=== PATIENT | male | born 1945 | race Caucasian/White ===

== ENCOUNTER 2017-10-21 08:40 | Day surgery (SDC) | payer OTHER, MEDICARE ==
[2017-10-21] MEDS ORDERED: NS 500 ML IV ONE (08:42)
[2017-10-21] MEDS ORDERED: MIDAZOLAM 2 MG/2 ML VIAL IVP ONE (08:42)
[2017-10-21] MEDS ORDERED: fentaNYL 100 MCG/2 ML INJ IVP ONE (08:42)
[2017-10-21] MEDS ORDERED: BENZOCAINE UNIT DOSE SPRAY HURRICAINE MM ONE (08:42)
[2017-10-21] MEDS ORDERED: ATROPINE SULFATE 1 MG/10 ML SYR ONE (09:19)
--- NOTE | 2017-10-21 09:25 | PDHPUP ---
History & Physical Update H&P update statement: This history and physical update is based on an assessment of the patient which was completed after admission or registration (within 24 hours), but prior to the surgery/procedure. H&P update: H&P reviewed & patient examined, no change in patient's condition since H&P completed (Reviewed Dr. Ross's note dated 10/11/2017)
--- NOTE | 2017-10-21 09:29 | PDANEPAE ---
ANE History of Present Illness PAF for MABEL ANE Past Medical History - Cardiovascular History Hx Hypertension: Yes Hx Arrhythmias: Yes Hx Chest Pain: No Hx Coronary Artery / Peripheral Vascular Disease: Yes Hx CHF / Valvular Disease: No Hx Palpitations: No Cardiovascular History Comment: Atrial Fibrillation - Pulmonary History Hx COPD: No Hx Asthma/Reactive Airway Disease: No Hx Recent Upper Respiratory Infection: No Hx Oxygen in Use at Home: Yes Hx Sleep Apnea: No Pulmonary History Comment: 2l O2 per nasal cannula - Neurologic History Hx Cerebrovascular Accident: No Hx Seizures: No Hx Dementia: No - Endocrine History Hx Diabetes: No Obesity: yes - Renal History Hx Renal Disorders: Yes Renal History Comment: Right Kidney Stone - Liver History Hx Hepatic Disorders: Yes Hepatic History Comment: Lesion on Liver - Neurological & Psychiatric Hx Hx Neurological and Psychiatric Disorders: No - Cancer History Hx Cancer: Yes Cancer History Comment: Malignant Melanoma - Congenital Disorder History Hx Congenital Disorders: No - GI History Hx Gastrointestinal Disorders: No - Other Health History Other Health History: Bruise easily, slight glaucoma, - Chronic Pain History Chronic Pain: No (Occasional Kidney stone pain and Arthritic pain) - Surgical History Prior Surgeries: Left shoulder repair x 3, Stent placements x 2, Stomach resection, Left neck resection with lymp nodes resection with large melanoma removed from nose. ANE Review of Systems Review of Systems: - Exercise capacity Exercise capacity: <4 METS ANE Patient History - Allergies Allergies/Adverse Reactions: gluten Allergy (Verified 09/08/12 16:06) - Home Medications Home medications: home medication list seen and reviewed Home Medications: Ascorbic Acid [Vitamin C 500 mg (OTC)] 1,000 mg PO DAILY 04/23/12 [Last Taken 08:00] Aspirin [Aspirin 325 mg (OTC)] 325 mg PO DAILY 04/23/12 [Last Taken 05/13/12] Atorvastatin Calcium [Lipitor 40 mg (RX)] 40 mg PO DAILY@18 04/23/12 [Last Taken 05/18/12 22:00] Calcium Carbonate [Calcicarb] 650 mg PO BID 04/23/12 [Last Taken 05/18/12 08:00] Cholecalciferol Vit D3 [Vitamin D3 40318 units (OTC)] 50,000 unit PO Q7D [Last Taken 05/18/12 08:00] Metoprolol Succinate Xr [Toprol Xl 50 mg (RX)] 50 mg PO DAILY 04/23/12 [Last Taken 05/20/12 08:00] NIFEdipine ER [Adalat CC 30 mg (RX)] 30 mg PO DAILY 04/23/12 [Last Taken 22:00] Niacin [Niacin 500 mg (OTC)] 500 mg PO BID 04/23/12 [Last Taken 05/18/12 20:00] [place]-3 Fatty Acids [Fish Oil 1000 mg (OTC)] 2,000 mg PO DAILY@18 04/23/12 [ Last Taken 05/13/12] Selenium [Selenium 200mcg (OTC)] 100 mcg PO DAILY 04/23/12 [Last Taken 05/18/12 08:00] Ubidecarenone [Coenzyme Q10] 200 mg PO DAILY 04/23/12 [Last Taken 05/18/12 08:00 ] Valsartan [Diovan 160MG (RX)] 160 mg PO BID 04/23/12 [Last Taken 05/19/12 08:00] Chromium Picolinate [Chromium Picolinate (OTC)] 200 mcg PO DAILY 05/16/12 [Last Taken 05/18/12 08:00] Completed By Pst Rn 05/16/12 [Last Taken Unknown] Folic Acid 0.8 mg PO DAILY 05/16/12 [Last Taken Unknown] Pyridoxine HCl (Vitamin B6) [Vitamin B-6] 50 mg PO DAILY 05/16/12 [Last Taken 08:00] Pharmacist Completed 05/19/12 05/19/12 [Last Taken 05/19/12] Warfarin Sodium 01/18/14 [Last Taken Unknown] - Smoking Hx Smoking Status: Former smoker - Family Anes Hx Family Hx Anesthesia Complications: unknow ANE Labs/Vital Signs - Vital Signs Height: 173 cm Weight: 107 kg ANE Physical Exam - Airway Neck exam: FROM Mallampati Score: Class 2 Mouth exam: normal dental/mouth exam - Pulmonary Pulmonary: no respiratory distress - Cardiovascular Cardiovascular: regular rate and rhythym - ASA Status ASA Status: III ANE Anesthesia Plan Anesthesia Plan: GA with mask
[2017-10-21] MEDS ORDERED: PROPOFOL 200 MG/20 ML VIAL ONE (09:30)
--- NOTE | 2017-10-21 10:15 | POSTANESTH ---
Post Anesthetic Evaluation Cardiovascular Status: Normal, Stable Respiratory Status: Normal, Stable Level of Consciousness/Mental Status: Can Participate in Eval, Mildly Sleepy, Arousable Pain Control: Adequate, Prn Tx Ordered Nausea/Vomiting Control: Adequate, Prn Tx Ordered Complications Possibly Related to Anesthesia: None Noted
--- NOTE | 2017-10-21 15:27 | ECHO ---
[email or web address] [address] [address] Main: [phone] Fax: Transesophageal Echocardiography Name: ALEXANDRIA WREN MR#: [id number] Study Date: 10/21/2017 Study Time: 09:34 AM Date of : 1945 Age: 71 year(s) Height: ( ) Weight: ( ) BSA: Gender: Male Examination: MABEL Indication: Pre Watchman Image Quality: Adequate Contrast: Requested by: Irasema Thao Heart Rate: Rhythm: BP: / Procedure Staff Mathematical Scientist: Adilia Loyd RDCS Reading Physician: Irasema Thao MD Requesting Provider: Pato Ross MABEL Exam Details Patient Consent: Risks, alternatives of procedure explained to patient, informed consent obtained. Conclusions: Normal size left ventricle. Normal global systolic LV function. The ejection fraction is visually estimated to be 60 %. No regional wall motion abnormality. Normal size right ventricle. Normal RV function. The pre watchman measurement for the FERMÍN at 0 degrees was 1.9 cm by 2.87 cm. The measurement at 45 degrees was 1.25 cm by 1.96 cm. The measurement at 90 degrees was .9 cm by 1.9 cm. The measurement 135 degrees was 1.1 cm by 1.95 cm. The left atrial appendage is multilobular. Good color flow doppler in the left atrial appendage. Normal PW-Doppler flow pattern. No thrombus in left appendage. There appears to be turbulent venous flow seen in right atrium. Negative bubble study. Mild mitral valve regurgitation is present. The aortic valve is tri-leaflet. Trivial aortic valve regurgitation. No aortic valve stenosis is present. Alexandria Wren Has an elevated CHADS2 Vasc score of 3 and is a poor candidate for long-term anticoagulation therapy due to frequent episodes of hematuria. He will be referred for a Watchman evaluation in the [facility] structural [facility]. Measurements: Patient: ALEXANDRIA WREN Study Date: 10/21/2017 Page 1 of 2 09:34 AM Chambers Valvular Assessment AV/MV Valvular Assessment TV/PV Normal Normal Normal Name Value Range Name Value Range Name Value Range Visual EF: 60 % Additional Measurements: Findings: Left Ventricle: Normal size left ventricle. No LV hypertrophy. Normal global systolic LV function. The ejection fraction is visually estimated to be 60 %. No regional wall motion abnormality. Unable to assess diastolic dysfunction. Right Ventricle: Normal size right ventricle. Normal RV function. Left Atrium: The left atrium is normal in size. The pre watchman measurement for the FERMÍN at 0 degrees was 1.9 cm by 2.87 cm. The measurement at 45 degrees was 1.25 cm by 1.96 cm. The measurement at 90 degrees was .9 cm by 1.9 cm. The measurement 135 degrees was 1.1 cm by 1.95 cm. Left Atrial Appendage: The left atrial appendage is multilobular. Good color flow doppler in the left atrial appendage. Normal PW-Doppler flow pattern. No thrombus in left appendage. Right Atrium: The right atrium is normal in size. There appears to be turbulent venous flow seen in right atrium. Negative bubble study. Mitral Valve: The mitral valve is normal in appearance and function. Mild mitral valve regurgitation is present. No mitral stenosis is present. Aortic Valve: The aortic valve is tri-leaflet. Trivial aortic valve regurgitation. No aortic valve stenosis is present. Tricuspid Valve: The tricuspid valve is normal in appearance and function. Trivial tricuspid valve regurgitation. Pulmonic Valve: The pulmonic valve is normal in appearance and function. There is no pulmonic regurgitation seen. Aorta: The aorta is normal. Pericardium: No pericardial effusion. No pleural effusion. Exam Comments: l1n (No Signature Object) Patient: ALEXANDRIA WREN Study Date: 10/21/2017 Page 2 of 2 09:34 AM [id number]
== END 2017-10-21 11:30 | disposition home or self-care (01) ==
LOC: FCATH 08:40
PROVIDERS: ATTEND Internal Medicine Cardiovascular Disease
PROC: B246ZZ4 Ultrasonography of Right and Left Heart, Transesophageal (ICD-10-PCS; principal; 2017-10-21)
DX: I48.0 Paroxysmal atrial fibrillation (principal); I25.10 Atherosclerotic heart disease of native coronary artery without angina pectoris; I10 Essential (primary) hypertension; N20.0 Calculus of kidney; Z79.01 Long term (current) use of anticoagulants
CPT/HCPCS: J0461; J2704

== ENCOUNTER 2017-12-04 08:28 | Day surgery (SDC) | payer OTHER, MEDICARE ==
[2017-12-04] MEDS ORDERED: diphenhydrAMINE 25 MG CAP PO ONE ×2 (08:29→08:43)
[2017-12-04] MEDS ORDERED: NS 1,000 ML IV ONE (08:29)
[2017-12-04] MEDS ORDERED: DIAZEPAM 5 MG TAB PO ONE (08:29)
[2017-12-04] MEDS ORDERED: ASPIRIN EC 325 MG TAB PO ONE ×2 (08:29→08:43)
[2017-12-04] MEDS ORDERED: FAMOTIDINE 20 MG TAB PO ONE (08:29)
[2017-12-04] MEDS ORDERED: DIAZEPAM 5 MG TAB ONE (08:43)
[2017-12-04] MEDS ORDERED: FAMOTIDINE 20 MG TAB ONE (08:43)
--- NOTE | 2017-12-04 08:47 | CPEKG ---
Heart Rate: 59 RR Interval: 1017 P-R Interval: 180 QRSD Interval: 98 QT Interval: 444 QTC Interval: 440 P [place]: 68 QRS [place]: 4 T Wave [place]: 230 EKG Severity - ABNORMAL ECG - EKG Impression: SINUS RHYTHM EKG Impression: ATRIAL PREMATURE COMPLEX EKG Impression: CONSIDER ANTEROSEPTAL INFARCT EKG Impression: REPOL ABNRM SUGGESTS ISCHEMIA, DIFFUSE LEADS Electronically Signed By: Zhou Sr 04-Dec-2017 09:41:56
[2017-12-04 09:04] LABS: PLATELET COUNT 277 10^3/uL (150-400)
[2017-12-04 09:13] LABS: INR 1.05 (0.83-1.16); PROTIME(PATIENT) 13.9 SEC (12.0-15.0)
[2017-12-04] MEDS ORDERED: MIDAZOLAM 2 MG/2 ML VIAL ONE (09:43)
[2017-12-04] MEDS ORDERED: LIDOCAINE 1% 300 MG/30 ML SDV ONE (09:43)
[2017-12-04] MEDS ORDERED: IOPAMIDOL (ISOVUE-370) 150 ML BTL IV ONE (09:43)
[2017-12-04] MEDS ORDERED: fentaNYL 100 MCG/2 ML INJ ONE (09:43)
--- NOTE | 2017-12-04 10:53 | PDHPUP ---
History & Physical Update H&P update statement: This history and physical update is based on an assessment of the patient which was completed after admission or registration (within 24 hours), but prior to the surgery/procedure. H&P update: H&P reviewed & patient examined, no change in patient's condition since H&P completed
--- NOTE | 2017-12-04 10:53 | PDPROPOC ---
Sedation Plan of Care ASA Classification: ASA 1 Planned drugs: fentanyl, midazolam Mallampati Score: Class 1 Mallampati Reference Image: Patient passed 3-3-2 rule?: Yes
[2017-12-04] MEDS ORDERED: OXYCODONE/APAP 5/325 TAB PO PRN (11:30)
[2017-12-04] MEDS ORDERED: ATROPINE SULFATE 1 MG/10 ML SYR IVP PRN (11:30)
[2017-12-04] MEDS ORDERED: ONDANSETRON 4 MG/2 ML VIAL IVP PRN (11:30)
[2017-12-04] MEDS ORDERED: NITROGLYCERIN 0.4 MG BTL SL PRN (11:30)
[2017-12-04] MEDS ORDERED: HYDROCODONE/APAP 5/325 TAB PO PRN (11:30)
--- NOTE | 2017-12-04 12:30 | CPIP ---
[f rep st] INVASIVE CARDIAC PROCEDURE PROCEDURE: Coronary angiogram, left heart catheterization. INDICATION: The patient is getting ready to undergo a cardiovascular surgical procedure for his atri al fibrillation. The information was needed to see if the patient needed coronary bypass grafting at the time of the other procedure. He has not been having chest pain. He is exercising on a regular basis. He is known to have coronar y artery disease and has twice received 2 stents, once in 2004 and the next time approximately 2006. FINDINGS: The left main coronary artery has mild narrowing at the ostium. There was no dampening, a nd there is no high-grade obstruction present. The left anterior descending artery is heavily stented at the end of the proximal and in the mid sect ion, and there is 30% stenosis within the stent. The patient has intimal disease in the distal LAD and in the diagonal system. The circumflex coronar y artery has no high-grade disease present. It gives a very large 1st obtuse marginal branch with in timal disease present and no high-grade stenosis. That vessel was also stented. The right coronary artery is dominant and has excellent flow. There is intimal disease throughout. There is 20% to 30% disease in the proximal mid and distal segment, maybe 35% to 40% disease. It bif urcates after that with ostial disease in both major branches of which is not consistent with high-gr khai stenosis. Multiple views were taken of the bifurcation, and no high-grade stenosis was present. Left heart catheterization was done. Left ventricular end-diastolic pressure 10 mmHg. There was no aortic stenosis. Left ventriculogram was not necessary. COMPLICATIONS: None. CONDITION AT THE END OF THE STUDY: Excellent. I reviewed the films with the interventional service, and it was felt that there is nothing that cb ants further evaluation for possible bypass surgery, such as FFR study to see if there is a significa nt stenosis present. Our recommendation is to proceed with the procedure without bypass surgery at this time. /[id number]/MODL
== END 2017-12-04 11:00 | disposition home or self-care (01) ==
LOC: FCATH 08:28
PROVIDERS: ATTEND Internal Medicine
PROC: 4A023N7 Measurement of Cardiac Sampling and Pressure, Left Heart, Percutaneous Approach (ICD-10-PCS; principal; 2017-12-04)
PROC: B2111ZZ Fluoroscopy of Multiple Coronary Arteries using Low Osmolar Contrast (ICD-10-PCS; principal; 2017-12-04)
DX: Z01.810 Encounter for preprocedural cardiovascular examination (principal); I48.0 Paroxysmal atrial fibrillation; I25.10 Atherosclerotic heart disease of native coronary artery without angina pectoris; I10 Essential (primary) hypertension; R31.9 Hematuria, unspecified; N20.0 Calculus of kidney; R06.09 Other forms of dyspnea; T45.515A Adverse effect of anticoagulants, initial encounter; Z85.820 Personal history of malignant melanoma of skin; Z87.891 Personal history of nicotine dependence; Z95.5 Presence of coronary angioplasty implant and graft; Z79.01 Long term (current) use of anticoagulants
CPT/HCPCS: C1760; J1644; J2250; J3010; Q9967

== ENCOUNTER 2018-03-10 07:15 | Inpatient (IN) | payer OTHER, MEDICARE ==
[2018-03-14] MEDS ORDERED: ceFAZolin 2 GM/DEXTROSE 100 ML IV ONE (06:10)
[2018-03-14] MEDS ORDERED: MUPIROCIN 2% 22 GM OINT NS ONE (06:10)
[2018-03-14] MEDS ORDERED: LR 1,000 ML IV ONE (06:12)
--- NOTE | 2018-03-14 06:36 | PDGENHP ---
History and Physical - Chief Complaint preop hybrid maze - History of Present Illness 72 yo male with longstanding persistent atrial fibrillation, a [id number] score of 3, and episodic hematuria on Coumadin, evaluated for a totally thoracoscopic maze procedure to mitigate need for long-term anticoagulation. 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 He believes his burden of Afib is relatively low, maybe once weekly, but is assoc with dyspnea when it occurs. His weight has been stable. No CP, dizziness, orthopnea or irritative urinary symptoms. He tends to have mild low leg swelling. History Information - Allergies/Home Medication List Allergies/Adverse Reactions: No Known Allergies Allergy (Unverified 12/04/17 10:10) Home Medications: Aspirin [Aspirin 325 mg (OTC)] 325 mg PO DAILY 04/23/12 [Last Taken 03/13/18] Atorvastatin Calcium [Lipitor 40 mg (RX)] 40 mg PO HS 04/23/12 [Last Taken 03/13] Metoprolol Succinate Xr [Toprol Xl 50 mg (RX)] 50 mg PO DAILY 04/23/12 [Last Taken 03/13/18] NIFEdipine ER [Adalat CC 30 mg (RX)] 30 mg PO DAILY 04/23/12 [Last Taken ] [place]-3 Fatty Acids [Fish Oil 1000 mg (OTC)] 2,000 mg PO HS 04/23/12 [Last Taken 03/09/18] Selenium [Selenium 200mcg (OTC)] 100 mcg PO DAILY 04/23/12 [Last Taken 03/13/18] Warfarin Sodium [Coumadin 5MG (*)] 5 mg PO SUMOWEFR@21 01/18/14 [Last Taken ] Ergocalciferol [Vitamin D2 (*)] 50,000 unit PO Q14D 12/04/17 [Last Taken ] Herbals/Supplements -Info Only 1 ea PO DAILY 12/04/17 [Last Taken 03/13/18] Metoprolol Succinate Xr [Toprol Xl 25 mg (*)] 25 mg PO HS 12/04/17 [Last Taken 03/13/18] Venlafaxine Xr [Effexor Xr 75MG (*)] 75 mg PO DAILY 12/04/17 [Last Taken ] Warfarin Sodium [Coumadin 7.5MG (*)] 7.5 mg PO TUTHSA@21 12/04/17 [Last Taken ] Enalapril Maleate [Vasotec 5 MG (*)] 5 mg PO DAILY 02/07/18 [Last Taken 03/13/18 ] Herbals/Supplements -Info Only 1 ea PO DAILY 02/07/18 [Last Taken 03/13/18] Enoxaparin [Lovenox 100 MG (*)] 100 mg SQ BID 03/14/18 [Last Taken 03/13/18 11: 00] I have personally reviewed and updated: medical history, social history, surgical history - Past Medical History atrial fibrillation, coronary artery disease (stents x2 twice, in 2004 and approx 2006), cancer (stage II cutaneous melanoma eyelid and nose 2011; q [address]/PET thus far "clean") Additional medical history: chronic anticoagulation on Coumadin. kidney stone. gastric ulcer assoc w use of Plavix - Surgical History Additional surgical history: stomach, "too big" for EGD ablation - Social History Smoking Status: Former smoker Review of Systems Review of Systems: ROS: 10pt was reviewed & negative except for what was stated in HPI & below Physical Exam Physical Exam: Temp Pulse Resp BP Pulse Ox 36.6 C 54 L 14 181/85 H 88 L 03/14/18 06:15 03/14/18 06:15 03/14/18 06:15 03/14/18 06:15 03/14/18 06:15 Constitutional: no apparent distress, appears nourished Eyes: other (glasses, PER) Ears, Nose, Mouth, Throat: moist mucous membranes, other (no visible dental disrepair) Cardiovascular: regular rate and rhythym, no murmur, rub, or gallop, edema (1+ dependent) Peripheral Pulses: 2+: femoral (R), femoral (L), dorsalis-pedis (R), dorsalis- pedis (L) Respiratory: no respiratory distress, clear to auscultation Gastrointestinal: soft, non-tender abdomen Skin: warm, normal color Musculoskeletal: other (symmetric tone) Lab Data & Imaging Review Labs 03/12/18: H/H 12.5/43, K 3.6, Cr 0.9, A1c 5.7% Last INR on 02/25: 2.5 Imaging Review: 12/04/17 LHC: Diffuse CAD without obstructive lesions, 30% ISR LAD, widely patent LCX/OM stent, 40% distal RCA stenosis, LVEDP 10 10/21/17 MABEL:LVEF 60%, mild MR, FERMÍN free of thrombus (too small for Watchman) Visualized and Interpreted Chest x-ray results: Yes Chest X-Ray results: other (hypoventilation with mild pulm vasc congestion) Visualized and Interpreted EKG results: Yes EKG Interpretation: Positive for: normal sinsus rhythm (SB with PAC) Assessment & Plan Assessment: Longstanding persistent atrial fibrillation Anticoagulation intolerance Plan: Totally thoracoscopic Maze with Clip exclusion of the left atrial appendage [place]-Maze IV procedure if conversion to median sternotomy
[2018-03-14] MEDS ORDERED: PROTAMINE SULFATE 50 MG/5 ML VIAL IVP ONE (06:53)
[2018-03-14] MEDS ORDERED: ALBUMIN 5% 250 ML BOTTLE IV ONE (06:53)
[2018-03-14] MEDS ORDERED: NA BICARBONATE 50 MEQ/50 ML VIAL ONE (06:54)
[2018-03-14] MEDS ORDERED: MILRINONE/DEXTROSE/100 ML BAG IV ONE (06:54)
[2018-03-14] MEDS ORDERED: CALCIUM CHLORIDE 1 GM/10 ML INJ ONE (06:54)
[2018-03-14] MEDS ORDERED: LIDOCAINE 2% 100 MG/5 ML SYR ONE (06:54)
[2018-03-14] MEDS ORDERED: niCARdipine/NACL/200 ML BAG IV ONE (06:55)
[2018-03-14] MEDS ORDERED: CITRATE DEXTROSE SOLN 500 ML BAG ONE (06:55)
[2018-03-14] MEDS ORDERED: DOPamine/DEXTROSE 400 MG/250 ML BAG IV ONE (06:55)
[2018-03-14] MEDS ORDERED: AMIODARONE HCL 150 MG/3 ML VIAL ONE (06:55)
[2018-03-14] MEDS ORDERED: HEPARIN 10,000 UNIT/10 ML MDV (1,000 UNIT/ML) ONE (06:55)
[2018-03-14] MEDS ORDERED: ADENOSINE 6 MG/2 ML VIAL ONE (06:55)
[2018-03-14] MEDS ORDERED: methylPREDNISolone SOD SUCC 1 GM/8 ML VIAL ONE (06:56)
[2018-03-14] MEDS ORDERED: NITROGLYCERIN/D5W 50 MG/250 ML BOTTLE IV ONE (06:56)
[2018-03-14] MEDS ORDERED: MAGNESIUM SULFATE 1 GM/2 ML VIAL ONE (06:56)
[2018-03-14] MEDS ORDERED: ceFAZolin 1 GM VIAL ONE ×3 (06:56→12:24)
[2018-03-14] MEDS ORDERED: MIDAZOLAM 2 MG/2 ML VIAL IVP ONE (07:03)
--- NOTE | 2018-03-14 07:03 | PDANEPAE ---
ANE History of Present Illness here for maze ANE Past Medical History - Cardiovascular History Hx Hypertension: Yes Hx Arrhythmias: Yes Hx Chest Pain: No Hx Coronary Artery / Peripheral Vascular Disease: Yes Hx CHF / Valvular Disease: No Hx Palpitations: No Cardiovascular History Comment: Atrial Fibrillation - Pulmonary History Hx COPD: No Hx Asthma/Reactive Airway Disease: No Hx Recent Upper Respiratory Infection: No Hx Oxygen in Use at Home: Yes O2 in Use at Home (L/minute): 2L O2/nasal cannula at night Hx Sleep Apnea: No Sleep Apnea Screening Result - Last Documented: Positive Pulmonary History Comment: JEFF Triggers - Neurologic History Hx Cerebrovascular Accident: No Hx Seizures: No Hx Dementia: No - Endocrine History Hx Diabetes: No - Renal History Hx Renal Disorders: Yes Renal History Comment: Right Kidney Stone - Liver History Hx Hepatic Disorders: No Hepatic History Comment: Lesion on Liver - Neurological & Psychiatric Hx Hx Neurological and Psychiatric Disorders: Yes Neurological / Psychiatric History Comment: depression - Cancer History Hx Cancer: Yes Cancer History Comment: Malignant Melanoma - Congenital Disorder History Hx Congenital Disorders: No - GI History Hx Gastrointestinal Disorders: No - Other Health History Other Health History: wears glasses. bilat. hearing aids. Bruise easily. beginning glaucoma - Chronic Pain History Chronic Pain: No (Occasional Kidney stone pain and Arthritic pain) - Surgical History Prior Surgeries: Left shoulder repair x 3. Stent placements x 2. Stomach resection. Left neck resection with lymph nodes resection with large melanoma removed from nose ANE Review of Systems Review of systems is: negative Review of Systems: - Exercise capacity Exercise capacity: >=4 METS METS (RN): 4 METS ANE Patient History - Allergies Allergies/Adverse Reactions: No Known Allergies Allergy (Unverified 12/04/17 10:10) - Home Medications Home medications: home medication list seen and reviewed Home Medications: Aspirin [Aspirin 325 mg (OTC)] 325 mg PO DAILY 04/23/12 [Last Taken 03/13/18] Atorvastatin Calcium [Lipitor 40 mg (RX)] 40 mg PO HS 04/23/12 [Last Taken 03/13] Metoprolol Succinate Xr [Toprol Xl 50 mg (RX)] 50 mg PO DAILY 04/23/12 [Last Taken 03/13/18] NIFEdipine ER [Adalat CC 30 mg (RX)] 30 mg PO DAILY 04/23/12 [Last Taken ] [place]-3 Fatty Acids [Fish Oil 1000 mg (OTC)] 2,000 mg PO HS 04/23/12 [Last Taken 03/09/18] Selenium [Selenium 200mcg (OTC)] 100 mcg PO DAILY 04/23/12 [Last Taken 03/13/18] Warfarin Sodium [Coumadin 5MG (*)] 5 mg PO SUMOWEFR@01/18/14 [Last Taken ] Ergocalciferol [Vitamin D2 (*)] 50,000 unit PO Q14D 12/04/17 [Last Taken ] Herbals/Supplements -Info Only 1 ea PO DAILY 12/04/17 [Last Taken 03/13/18] Metoprolol Succinate Xr [Toprol Xl 25 mg (*)] 25 mg PO HS 12/04/17 [Last Taken 03/13/18] Venlafaxine Xr [Effexor Xr 75MG (*)] 75 mg PO DAILY 12/04/17 [Last Taken ] Warfarin Sodium [Coumadin 7.5MG (*)] 7.5 mg PO TUTHSA@12/04/17 [Last Taken ] Enalapril Maleate [Vasotec 5 MG (*)] 5 mg PO DAILY 02/07/18 [Last Taken 03/13/18 ] Herbals/Supplements -Info Only 1 ea PO DAILY 02/07/18 [Last Taken 03/13/18] Enoxaparin [Lovenox 100 MG (*)] 100 mg SQ BID 03/14/18 [Last Taken 03/13/18 11: 00] - NPO status NPO Status: no food or drink >8 hours NPO Since - Liquids (Date): 03/13/18 NPO Since - Liquids (Time): 23:45 NPO Since - Solids (Date): 03/13/18 NPO Since - Solids (Time): 18:30 - Smoking Hx Smoking Status: Former smoker - Family Anes Hx Family Hx Anesthesia Complications: unknow ANE Labs/Vital Signs - Vital Signs Vital Signs: reviewed preoperatively; see RN documention for details Blood Pressure: 181/85 Heart Rate: 54 Respiratory Rate: 14 O2 Sat (%): 88 Height: 170.18 cm Weight: 105.687 kg ANE Physical Exam - Airway Neck exam: FROM Mallampati Score: Class 1 Mouth exam: campos - Pulmonary Pulmonary: no respiratory distress - Cardiovascular Cardiovascular: regular rate and rhythym - ASA Status ASA Status: III ANE Anesthesia Plan Anesthesia Plan: general endotracheal anesthesia Lines/Monitors: arterial line, central line, MABEL
[2018-03-14] MEDS ORDERED: fentaNYL 250 MCG/5 ML INJ ONE (07:14)
[2018-03-14] MEDS ORDERED: PROPOFOL/EMULSION 500 MG/50 ML BOTTLE IV ONE (07:15)
[2018-03-14] MEDS ORDERED: BUPIVACAINE 0.25% 30 ML SDV ONE (07:51)
[2018-03-14] MEDS ORDERED: EPINEPHrine 1 MG/ML INJ ONE (07:51)
[2018-03-14] MEDS ORDERED: SURGIFLO MATRIX KIT WITH THROMBIN 8 ML TP ONE (10:57)
[2018-03-14] MEDS ORDERED: PHENYLEPHRINE HCL 100 MCG/ML SYR ONE ×5 (12:22)
[2018-03-14] MEDS ORDERED: ePHEDrine SULFATE 25 MG/5 ML SYR ONE (12:22)
[2018-03-14] MEDS ORDERED: ONDANSETRON 4 MG/2 ML VIAL ONE (13:18)
[2018-03-14] MEDS ORDERED: SUGAMMADEX SODIUM 200 MG/2 ML VIAL IVP ONE (13:18)
[2018-03-14] MEDS ORDERED: KETOROLAC 30 MG/1 ML SDV ONE (13:23)
[2018-03-14] MEDS ORDERED: D50W 25 GM/50 ML SYR IVP PRN (13:36)
[2018-03-14] MEDS ORDERED: ONDANSETRON 4 MG/2 ML VIAL IVP PRN (13:36)
[2018-03-14] MEDS ORDERED: ACETAMINOPHEN 650 MG SUPP PR PRN (13:36)
[2018-03-14] MEDS ORDERED: MEPERIDINE 25 MG/0.5 ML AMP IVP PRN (13:36)
[2018-03-14] MEDS ORDERED: ALBUMIN 5% 250 ML IV PRN (13:36)
[2018-03-14] MEDS ORDERED: CEPACOL LOZENGE PO PRN (13:36)
[2018-03-14] MEDS ORDERED: POLYETHYLENE GLYCOL 3350 17 GM PKT PO PRN (13:36)
[2018-03-14] MEDS ORDERED: LACTULOSE 20 GM/30 ML UDCUP PO PRN (13:36)
[2018-03-14] MEDS ORDERED: PANTOPRAZOLE SODIUM 40 MG VIAL IVP ONE (13:36)
[2018-03-14] MEDS ORDERED: MAGNESIUM HYDROXIDE 30 ML UDCUP PO PRN (13:36)
[2018-03-14] MEDS ORDERED: ACETAMINOPHEN 325 MG TAB PO PRN (13:36)
[2018-03-14] MEDS ORDERED: METOCLOPRAMIDE 10 MG/2 ML VIAL IVP PRN (13:36)
[2018-03-14] MEDS ORDERED: ONDANSETRON DISINTEGRATING 4 MG TAB PO PRN (13:36)
[2018-03-14] MEDS ORDERED: POTASSIUM Cl (KCl) 50 ML IV PRN (13:36)
[2018-03-14] MEDS ORDERED: BISACODYL 10 MG SUPP PR PRN (13:36)
[2018-03-14] MEDS ORDERED: niCARdipine/NACL 200 ML IV PRN (13:36)
[2018-03-14] MEDS ORDERED: fentaNYL 100 MCG/2 ML INJ IVP PRN (13:36)
[2018-03-14] MEDS ORDERED: SODIUM CL NASAL 45 ML BTL EACHNARE PRN (13:36)
[2018-03-14] MEDS ORDERED: NS 1,000 ML IV SCH (13:45)
[2018-03-14] MEDS ORDERED: AMIODARONE HCL 200 ML IV ONE (13:50)
[2018-03-14] MEDS ORDERED: AMIODARONE HCL 540 MG in D5W 300 ML IV ONE ×2 (13:50→22:00)
[2018-03-14] MEDS ORDERED: AMIODARONE HCL 100 ML IV ONE (13:50)
[2018-03-14] MEDS ORDERED: INSULIN REGULAR HUMAN 100 UNIT in NS 100 ML IV SCH (14:00)
--- NOTE | 2018-03-14 14:17 | PDMN ---
Medical Necessity Medical necessity: CPT 17495 ablation and reconstruction of atria (hybrid maze) , [facility] IP only
[2018-03-14] MEDS ORDERED: METOPROLOL SUCCINATE XR 50 MG TAB PO SCH (15:45)
[2018-03-14] MEDS ORDERED: PANTOPRAZOLE SODIUM 40 MG VIAL ONE (15:58)
[2018-03-14] MEDS: ceFAZolin 2 GM/DEXTROSE 100 ML IV SCH ×2 (16:01→21:28)
--- NOTE | 2018-03-14 16:23 | POSTANESTH ---
Post Anesthetic Evaluation Cardiovascular Status: Normal, Stable Respiratory Status: Normal, Stable Level of Consciousness/Mental Status: Can Participate in Eval Pain Control: Adequate, Prn Tx Ordered Nausea/Vomiting Control: Adequate, Prn Tx Ordered Complications Possibly Related to Anesthesia: None Noted
--- NOTE | 2018-03-14 16:30 | PDCONSULT ---
Salesperson Hosiery Note: ASSESSMENT 72-year-old male with longstanding atrial fibrillation status post laparoscopic Maze procedure complicated by liver laceration requiring thoracotomy. # atrial fibrillation # staghorn calculi # complication of therapeutic anticoagulation # obstructive sleep apnea with chronic nocturnal hypoxemic respiratory failure # acute on chronic hypoxemic respiratory failure # obesity # hyperlipidemia PLAN # supplemental oxygen while sleeping as patient does not tolerate CPAP # aggressive pulmonary toilet # resume home medications with the exception of warfarin # I suggested to patient against using herbal supplements as an not FDA regulated and may interact with his various medications # postop care per CT surgery # Feeding - advanced as tolerated # Analgesia APAP, narcotic # Sedation none # Thromboprophylaxis - SCDs, heparin # Head of bed elevated # Ulcer prophylaxis - PPI # Glucose SSI # Skin no skin breakdown # Delirium - delirium precautions I was asked by Dr. Graff of cardiothoracic surgery to consult on this patient for postoperative ICU care. Chief complaint Palpitations HPI Price is a very pleasant 38-year-old male with longstanding atrial fibrillation, staghorn calculi with chronic hematuria and obstructive sleep apnea who is status post thorascopic Maze procedure complicated by liver laceration. He has longstanding atrial fibrillation with intermittent episodes of palpitations and shortness of breath. He is maintained on anticoagulation warfarin but has chronic hematuria for this. He has obstructive sleep apnea and wears oxygen sat of CPAP. He is a prior smoker but quit over 20 years ago and as significant coronary disease and is compliant with his statin and aspirin. He does not tolerate Plavix secondary to bleeding. He has a history of treated stage III melanoma. At the time of interview he denies headaches, chest pain, back ache, abdominal pain, leg swelling, shortness of breath, fevers or chills Allergies No known drug allergies Past medical history atrial fibrillation, coronary disease status post PCI x2 in 2005 in 2017, stage to cutaneous melanoma, treated, obesity, obstructive sleep apnea requires 2 L of oxygen, chronic nocturnal hypoxemic respiratory failure Past surgical history As above Social history prior smoker lives with his in table [place] Review of systems a comprehensive 10 point review of systems is obtained is negative except as per HPI Exam Vitals Temperature 36.4 degrees, pulse 83 normal sinus rhythm, blood pressure 121/68, respiratory rate 18 95% 3 L nasal cannula GEN: NAD, resting in bed NEURO: A&Ox3, CN 2-12 GI HEENT: PERRL, EOMI, MMM, OP clear, Mallampati 4 NECK: supple, trachea midline CHEST normal shape, no pes excavatum, thoracotomy and thorascopic incision port sites clean dry and intact CVS: rrr no m/r/g PULM: CTA B, no wheezes/rales/rhonchi ABD: Protuberant, soft, NT, ND, NABS EXT: no swelling, no cyanosis, full ROM SKIN: warm, dry, intact, no rash PSYCH CAM negative, appropriate affect Data I reviewed interpreted the patient's laboratory data as well as chest x-ray Postoperative chest ray x-ray consistent postoperative surgical changes, grossly clear lung blackman with mild bibasilar atelectasis, no pneumothorax.
[2018-03-14] MEDS: HYDROCODONE/APAP 5/325 TAB PO PRN ×2 (18:25→19:20)
[2018-03-14] MEDS ORDERED: DEXAMETHASONE 4 MG/ML VIAL IVP ONE (20:00)
[2018-03-14] MEDS: KETOROLAC 15 MG/1 ML SDV IVP SCH (20:32)
[2018-03-14] MEDS: MUPIROCIN 2% 22 GM OINT NS SCH (20:33)
[2018-03-14] MEDS ORDERED: METOPROLOL SUCCINATE XR 25 MG TAB PO SCH (21:00)
[2018-03-14] MEDS: HEPARIN 5,000 UNIT/0.5 ML INJ SC SCH (21:30)
[2018-03-15] MEDS: KETOROLAC 15 MG/1 ML SDV IVP SCH ×5 (00:12→23:53)
[2018-03-15] MEDS: ceFAZolin 2 GM/DEXTROSE 100 ML IV SCH ×2 (05:00→14:30)
[2018-03-15 05:14] LABS: PLATELET COUNT 255 10^3/uL (150-400)
[2018-03-15] MEDS: HYDROCODONE/APAP 5/325 TAB PO PRN ×3 (05:26→23:53)
[2018-03-15] MEDS: HEPARIN 5,000 UNIT/0.5 ML INJ SC SCH ×3 (05:27→20:23)
[2018-03-15 05:30] LABS: INR 1.03 (0.83-1.16); PROTIME(PATIENT) 13.7 SEC (12.0-15.0)
--- NOTE | 2018-03-15 05:33 | GOP ---
DATE OF OPERATION: 03/14/2018 SURGEON: Billy Graff DO NEUROSURGEON: Billy Graff DO CLINICAL PHARMACIST: VONNIE Corrales ANESTHESIOLOGIST: Odell Bundy MD PREOPERATIVE DIAGNOSIS: Longstanding persistent atrial fibrillation. POSTOPERATIVE DIAGNOSIS: Longstanding persistent atrial fibrillation. PROCEDURE PERFORMED: Thoracoscopic bilateral Maze procedure, hybrid, with radiofrequency, sensing an d testing. FINDINGS: DESCRIPTION OF PROCEDURE: Patient was consulted for longstanding symptomatic persistent atrial fibri llation refractory to other modalities. He preferred thoracoscopic Maze as opposed to open [place]-Maze IV to limit the trauma. He was brought to the operating room. Double-lumen endotracheal tube and mon itoring arterial line were placed. He was prepped and draped, and placed on the table in the standar d set-up. Initially, we began from the left side. Four separate portals at approximately the anteri or axillary line, 4th and 5th intercostal spaces, and then in the subclavian region, in the 2nd inter costal space lateral to the mammary bundle. The lung had been decompressed. We had excellent exposu re. The pericardium was opened with a Harmonic scalpel. The pericardium was opened 3 cm inferior to the left phrenic nerve. Retraction sutures were placed for better exposure. We then performed sens ing on the pulmonary veins and showed no evidence of block. He was in atrial fibrillation, and there fore, could not do a pacing. We then took down the ligament with Harmonic scalpel with good visualiz ation, opening up the transverse sinus. We then performed ablation across the dome of the left atriu m, all the way to the vena cava, where we could easily visualize with multiple ablations applied with radiofrequency utilizing the Coolrail, which was irrigated continuously with cold water. When we we re satisfied we had transmurality, we then used a dissecting light and encircled the left pulmonary v eins without difficulty, and placed an ablation clamp across that with multiple lesions performed, wi th confirmation of lack of conductance, with sensing and pacing on the pulmonary veins. We then plac ed a 35 mm atrial clip across the base of the left atrial appendage and confirmed that it was flush w ith the atrial wall on transesophageal echo. It should be noted that the appendage without EKG medley es or any significant bleeding. We then irrigated the wounds. There was no evidence of bleeding fro m this site. A single chest tube was placed in the pleural cavity, and the wounds were then closed. Resumption of ventilation on the left side was performed. We then initiated placing a 5 mm port in the anterior axillary line in the 4th intercostal space with the camera inside the stent. Initially, I thought we were in the intercostal tissues. However, subsequently ended up being the diaphragm an d we created a small laceration on the liver. This was controlled with pressure. We opened an infer ior port site at approximately the 6th intercostal space, approximately 4 cm, placed a retractor, ope carmen the diaphragm and inspected. No further bleeding was identified. The diaphragm was closed with continuous running 0 PDS. We then developed the oblique sinus. We then completed the ablation line from the right inferior to the left inferior pulmonary vein, overlapping it multiple times, with evid ence of good conduction. We then performed the remainder of the roof lesion after developing the dom e of the left atrium beneath the cavoatrial junction, with good visualization of the previously ablat ed dome, extending all the way over to the right superior pulmonary vein. We overlapped this with mul tiple ablations, confirming lack of conductance. We then placed a dissecting light in the oblique si nus, and gently dissected up between the pulmonary artery and the pulmonary vein, grasping the sheath and then ablating the right pulmonary veins with multiple lesion sets, confirming lack of conductanc e with pacing and sensing across the ablation line. Pericardium was closed with a single suture to p revent herniation. A single chest tube was placed. Marcaine was used to infiltrate both chest cavit ies in the intercostal space. The wounds were closed in standard fashion after resumption of ventila tion. Patient was returned to ICU in stable condition. /[id number]/MODL
--- NOTE | 2018-03-15 07:24 | SOAPPROG ---
SOAP Progress Note Assessment/Plan: Assessment: Totally thoracoscopic Maze w bipolar RF and Clip exclusion of the FERMÍN, compl by liver injury requiring rt sided thoracotomy Longstanding persistent atrial fibrillation - with intermittent hematuria on Coumadin. Hybrid Maze uneventful on the left side. Right side compl by thoracoscopy port puncture of liver req mini thoracotomy to explore wound. Hemostasis achieved with topical hemostatic and pressure. Remainder of rt sided ablative lesions completed without incident. Pleuropericarditis prophylaxis with steroids. AF prophylaxis with amio and BB, uptitrated as tolerated. Antithrombotic prophylaxis with Coumadin x 3 mo, as per existing INR parameters. Acute expected blood loss anemia - Exacerbated by liver injury. No transfusions required. JEFF/chronic nocturnal hypoxemia - Stable. Extubated without incident. No sig suppl O2 needs. Plan: Consider removal left chest tube later today. Transition IV amio to orals. Cont home metoprolol regimen. Start diuresis. Transition to oral steroids. Inc activity as tolerated. Tx to PCU 03/15/18 07:20 Subjective: Doing ok. Comfortable at rest. No dizziness upright. Only concern is avoiding constipation. Objective: Vital Signs Temp Pulse Resp BP Pulse Ox 37.0 C 54 L 20 128/57 H 94 03/15/18 06:00 03/15/18 06:00 03/15/18 06:00 03/15/18 06:00 03/15/18 06:00 Laboratory Results 03/15/18 05:00 03/15/18 05:00 03/14/18 03/15/18 03/16/18 05:59 05:59 04:59 Intake Total 5373 Output Total 1825 Balance 3548 PT 13.7 SEC (12.0-15.0) 03/15/18 05:00 INR 1.03 (0.83-1.16) 03/15/18 05:00 Holding SR/SB. Min suppl O2 req. Positive fluid balance. No sig CTOP. CXR-> no PTX, hypovent, no sig pulm vasc congestion, left basilar atelectasis. Labs as expected. Physical Exam - Physical Exam General Appearance: alert, no apparent distress Respiratory: decreased breath sounds (bases), other (bilat chest tubes to pleurovac, serosang drainage, +tidal, no air leaks) Cardiac/Chest: regular rate, rhythm, other (bilat surgical incisions/port sites CDI) Abdomen: normal bowel sounds, non-tender, soft Skin: warm/dry Extremities: swelling (1+ dependent) ICD10 Worksheet Patient Problems: Problems Problem Status Onset Acute blood loss anemia Acute Liver laceration, minor Acute S/P Maze operation for atrial fibrillation Acute ~03/14/18 S/P thoracotomy Acute ~03/14/18 CAD, multiple vessel Chronic Chronic anticoagulation Chronic Longstanding persistent atrial fibrillation Chronic JEFF (obstructive sleep apnea) Chronic Renal calculus, right Chronic
[2018-03-15] MEDS ORDERED: predniSONE 20 MG TAB PO ONE (08:00)
[2018-03-15] MEDS: METOPROLOL SUCCINATE XR 50 MG TAB PO SCH (08:53)
[2018-03-15] MEDS: ASPIRIN 81 MG CHEWABLE TAB PO SCH (08:53)
[2018-03-15] MEDS: PANTOPRAZOLE SODIUM 40 MG TAB PO SCH (08:53)
[2018-03-15] MEDS: SENNOSIDES/DOCUSATE SODIUM TAB PO SCH ×2 (08:54→20:22)
[2018-03-15] MEDS ORDERED: FUROSEMIDE 40 MG/4 ML VIAL IVP ONE (09:00)
[2018-03-15] MEDS ORDERED: POTASSIUM CL 10 MEQ TAB PO ONE (09:00)
[2018-03-15] MEDS ORDERED: VENLAFAXINE XR 75 MG CAP PO SCH (09:00)
[2018-03-15] MEDS: MUPIROCIN 2% 22 GM OINT NS SCH ×2 (09:43→20:24)
--- NOTE | 2018-03-15 18:22 | ASMTCMCOM ---
CM Note CM Note Notes: Pt admitted status post thoracoscopic Maze procedure complicated by liver laceration requiring thoracotomy. PT/OT evals recommend DC Home Independent. Anticipate pt to continue to stabilize and DC home w/ to follow-up at cardiac rehab. CM to follow. Date Signed: 03/15/2018 06:21 PM Electronically Signed By:Nkechi John RN
[2018-03-15] MEDS: AMIODARONE HCL 200 MG TAB PO SCH (20:20)
[2018-03-15] MEDS: METOPROLOL SUCCINATE XR 25 MG TAB PO SCH (20:21)
[2018-03-15] MEDS: VENLAFAXINE XR 75 MG CAP PO SCH (20:37)
[2018-03-15] MEDS: ENALAPRIL MALEATE 5 MG TAB PO SCH (20:37)
[2018-03-15] MEDS ORDERED: SENNOSIDES/DOCUSATE SODIUM TAB PO SCH (21:00)
[2018-03-15] MEDS ORDERED: WARFARIN SODIUM 7.5 MG TAB PO SCH (21:00)
[2018-03-16] MEDS: HEPARIN 5,000 UNIT/0.5 ML INJ SC SCH ×3 (05:22→22:51)
[2018-03-16 05:45] LABS: PLATELET COUNT 260 10^3/uL (150-400)
[2018-03-16 05:53] LABS: INR 1.05 (0.83-1.16); PROTIME(PATIENT) 13.9 SEC (12.0-15.0)
--- NOTE | 2018-03-16 07:35 | SOAPPROG ---
SOAP Progress Note Assessment/Plan: Assessment: POD#2 Totally thoracoscopic Maze w bipolar RF and Clip exclusion of the FERMÍN, compl by liver injury requiring rt sided thoracotomy Longstanding persistent atrial fibrillation - with intermittent hematuria on Coumadin. Hybrid Maze uneventful on the left side. Right side compl by thoracoscopy port puncture of liver req mini thoracotomy to explore wound. Hemostasis achieved with topical hemostatic and pressure. Remainder of rt sided ablative lesions completed without incident. Chest tubes out. Pleuropericarditis prophylaxis with steroids. AF prophylaxis with amio and BB. Antithrombotic prophylaxis with Coumadin x 3 mo, as per existing INR parameters. Acute expected blood loss anemia - Exacerbated by liver injury. No transfusions required. JEFF/chronic nocturnal hypoxemia - Stable. Extubated without incident. No sig suppl O2 needs. Plan: Cont amio 200 mg BID. Cont home Toprol XL regimen, 50 mg qam and 25 mg qpm. Cont Vasotec 5 mg HS. Cont home coumadin regimen. Cont steroid taper. Dispo - Home without services tomorrow. 03/16/18 07:32 Subjective: Fell behind on pain control and struggling a bit to breathe. Awaiting BM. Doesn' t feel fit for home. Objective: Vital Signs Temp Pulse Resp BP Pulse Ox 36.8 C 76 16 155/81 H 92 03/16/18 05:00 03/16/18 05:00 03/16/18 05:00 03/16/18 05:00 03/16/18 05:00 Laboratory Results 03/16/18 05:25 03/16/18 05:25 03/15/18 03/16/18 03/17/18 06:59 05:59 05:59 Intake Total Output Total Balance PT 13.9 SEC (12.0-15.0) 03/16/18 05:25 INR 1.05 (0.83-1.16) 03/16/18 05:25 Holding SR. Uptrending SBP and Vasotec restarted last noc. Stable 2 lpm suppl O2 req. CXR-> hypoventilation, bibasilar atelectasis, no overt effusions Excellent diuresis on lasix. H/H remains stable. WBC count c/w steroid effect. INR yet to rise. - Pending Discharge Pending Discharge Within 24 Hours: Yes Pending Discharge Date: 03/17/18 Pending Discharge Time: 11:00 ICD10 Worksheet Patient Problems: Problems Problem Status Onset Acute blood loss anemia Acute Liver laceration, minor Acute S/P Maze operation for atrial fibrillation Acute ~03/14/18 S/P thoracotomy Acute ~03/14/18 CAD, multiple vessel Chronic Chronic anticoagulation Chronic Longstanding persistent atrial fibrillation Chronic JEFF (obstructive sleep apnea) Chronic Renal calculus, right Chronic
[2018-03-16] MEDS ORDERED: predniSONE 20 MG TAB PO ONE (08:00)
[2018-03-16] MEDS: SENNOSIDES/DOCUSATE SODIUM TAB PO SCH (08:28)
[2018-03-16] MEDS: METOPROLOL SUCCINATE XR 50 MG TAB PO SCH (08:29)
[2018-03-16] MEDS: AMIODARONE HCL 200 MG TAB PO SCH ×2 (08:29→22:38)
[2018-03-16] MEDS: ASPIRIN 81 MG CHEWABLE TAB PO SCH (08:29)
[2018-03-16] MEDS: PANTOPRAZOLE SODIUM 40 MG TAB PO SCH (08:29)
[2018-03-16] MEDS: HYDROCODONE/APAP 5/325 TAB PO PRN (08:29)
[2018-03-16] MEDS: MUPIROCIN 2% 22 GM OINT NS SCH (08:30)
[2018-03-16] MEDS ORDERED: KETOROLAC 15 MG/1 ML SDV IVP ONE (09:00)
[2018-03-16] MEDS ORDERED: FUROSEMIDE 20 MG/2 ML VIAL IVP ONE (09:00)
[2018-03-16] MEDS ORDERED: POTASSIUM CL 20 MEQ TAB PO ONE (09:00)
[2018-03-16] MEDS ORDERED: IPRATROPIUM/ALBUTEROL 3 ML DEYVIAL IH PRN (09:00)
[2018-03-16] MEDS: SELENIUM 0.2 MG TAB PO SCH (10:36)
[2018-03-16] MEDS: ACETAMINOPHEN 325 MG TAB PO SCH ×3 (13:16→22:50)
--- NOTE | 2018-03-16 13:22 | ASMTCMCOM ---
CM Note CM Note Notes: Chart reviewed. Per [facility] patient likely to dc home tomorrow. No needs identified. CM available should needs arise. Plan: Dc to home. Date Signed: 03/16/2018 01:21 PM Electronically Signed By:Alma Rosa Mariano RN
--- NOTE | 2018-03-16 14:56 | CPEKG ---
Test Reason : OPEN Blood Pressure : / mmHG Vent. Rate : 081 BPM Atrial Rate : 083 BPM P-R Int : 127 ms QRS Dur : 089 ms QT Int : 446 ms P-R-T Axes : 093 018 022 degrees QTc Int : 518 ms Sinus rhythm Sinus pause Borderline T wave abnormalities Prolonged QT interval Confirmed by Billy Barnett ([id number]) on 03/16/2018 2:55:56 PM Referred By: Confirmed By:Billy Barnett
[2018-03-16] MEDS: METOPROLOL SUCCINATE XR 25 MG TAB PO SCH (19:42)
[2018-03-16] MEDS: oxyCODONE IR 5 MG TAB PO PRN (19:44)
[2018-03-16] MEDS ORDERED: SENNOSIDES/DOCUSATE SODIUM TAB PO PRN (21:00)
[2018-03-16] MEDS: OMEGA-3 FATTY ACIDS 1,000 MG CAP PO SCH (22:37)
[2018-03-16] MEDS: VENLAFAXINE XR 75 MG CAP PO SCH (22:38)
[2018-03-16] MEDS: ATORVASTATIN CALCIUM 40 MG TAB PO SCH (22:38)
[2018-03-16] MEDS: ENALAPRIL MALEATE 5 MG TAB PO SCH (22:38)
[2018-03-16] MEDS: NIFEdipine ER 30 MG TAB PO SCH (22:38)
[2018-03-16] MEDS: WARFARIN SODIUM 5 MG TAB PO SCH (22:43)
[2018-03-17] MEDS: oxyCODONE IR 5 MG TAB PO PRN (04:17)
[2018-03-17 04:42] LABS: INR 1.23 (0.83-1.16); PROTIME(PATIENT) 15.7 SEC (12.0-15.0)
[2018-03-17] MEDS: ACETAMINOPHEN 325 MG TAB PO SCH ×4 (06:22→18:40)
[2018-03-17] MEDS: HEPARIN 5,000 UNIT/0.5 ML INJ SC SCH ×3 (06:22→21:11)
--- NOTE | 2018-03-17 06:59 | SOAPPROG ---
SOAP Progress Note Assessment/Plan: Assessment: POD#3 Totally thoracoscopic Maze w bipolar RF and Clip exclusion of the FERMÍN, compl by liver injury requiring rt sided thoracotomy Longstanding persistent atrial fibrillation - with intermittent hematuria on Coumadin. Hybrid Maze uneventful on the left side. Right side compl by thoracoscopy port puncture of liver req mini thoracotomy to explore wound. Hemostasis achieved with topical hemostatic and pressure. Remainder of rt sided ablative lesions completed without incident. Chest tubes out. Pleuropericarditis prophylaxis with steroids. AF prophylaxis with amio and BB. Antithrombotic prophylaxis with Coumadin x 3 mo, as per existing INR parameters. Acute expected blood loss anemia - Exacerbated by liver injury. No transfusions required. JEFF/chronic nocturnal hypoxemia - Stable. Extubated without incident. No sig suppl O2 needs. Plan: Decr amio to 200 mg daily. Multimodal analgesia. Intensify pulm toilet. Cont steroid taper. Dispo - Home without services later today. 03/17/18 06:58 Subjective: Wheezy and having a hard time mobilizing secretions. Sensitive to narcs and doesn't like feeling dopey. Nervous about going home this am. Objective: Vital Signs Temp Pulse Resp BP Pulse Ox 36.7 C 64 16 152/84 H 95 03/17/18 04:00 03/17/18 04:00 03/17/18 04:00 03/17/18 04:00 03/17/18 04:00 Laboratory Results 03/16/18 05:25 03/16/18 05:25 03/16/18 03/17/18 03/18/18 05:59 05:59 05:59 Intake Total 2270 Output Total 1400 Balance 870 PT 15.7 SEC (12.0-15.0) H 03/17/18 04:15 INR 1.23 (0.83-1.16) H 03/17/18 04:15 HR well controlled. BP remains somewhat elev, likely reactive to pain Adequate fluid balance. At admit wt. INR beginning to rise. Physical Exam - Physical Exam General Appearance: alert, no apparent distress Respiratory: wheezing (scattered expiratory), other (rt thoracot and bilat port sites CDI) Cardiac/Chest: regular rate, rhythm Abdomen: non-tender, soft Skin: warm/dry Extremities: other (no visible edema) ICD10 Worksheet Patient Problems: Problems Problem Status Onset Acute blood loss anemia Acute Liver laceration, minor Acute S/P Maze operation for atrial fibrillation Acute ~03/14/18 S/P thoracotomy Acute ~03/14/18 CAD, multiple vessel Chronic Chronic anticoagulation Chronic Longstanding persistent atrial fibrillation Chronic JEFF (obstructive sleep apnea) Chronic Renal calculus, right Chronic
[2018-03-17] MEDS: SELENIUM 0.2 MG TAB PO SCH (08:19)
[2018-03-17] MEDS: ASPIRIN 81 MG CHEWABLE TAB PO SCH (08:19)
[2018-03-17] MEDS: traMADol 50 MG TAB PO PRN ×2 (08:19→21:10)
[2018-03-17] MEDS: AMIODARONE HCL 200 MG TAB PO SCH ×2 (08:20→21:08)
[2018-03-17] MEDS: METOPROLOL SUCCINATE XR 50 MG TAB PO SCH (08:20)
[2018-03-17] MEDS: PANTOPRAZOLE SODIUM 40 MG TAB PO SCH (08:20)
[2018-03-17] MEDS ORDERED: predniSONE 20 MG TAB PO ONE (09:00)
[2018-03-17] MEDS: guaiFENesin 600 MG TAB.ER PO SCH ×2 (09:17→21:08)
[2018-03-17] MEDS: IBUPROFEN 600 MG TAB PO SCH ×3 (09:18→18:40)
[2018-03-17] MEDS: methylPREDNISolone 4 MG TAB PO SCH ×4 (11:36→21:08)
[2018-03-17] MEDS ORDERED: POTASSIUM CL 20 MEQ TAB PO ONE (15:00)
[2018-03-17] MEDS ORDERED: FUROSEMIDE 40 MG/4 ML VIAL IVP ONE (15:00)
[2018-03-17] MEDS: OMEGA-3 FATTY ACIDS 1,000 MG CAP PO SCH (21:07)
[2018-03-17] MEDS: VENLAFAXINE XR 75 MG CAP PO SCH (21:07)
[2018-03-17] MEDS: ATORVASTATIN CALCIUM 40 MG TAB PO SCH (21:07)
[2018-03-17] MEDS: NIFEdipine ER 30 MG TAB PO SCH (21:08)
[2018-03-17] MEDS: METOPROLOL SUCCINATE XR 25 MG TAB PO SCH (21:08)
[2018-03-17] MEDS: ENALAPRIL MALEATE 5 MG TAB PO SCH (21:08)
[2018-03-17] MEDS: WARFARIN SODIUM 5 MG TAB PO SCH (21:09)
[2018-03-18] MEDS: ACETAMINOPHEN 325 MG TAB PO SCH ×3 (01:00→12:22)
[2018-03-18] MEDS: IBUPROFEN 600 MG TAB PO SCH ×3 (01:01→12:21)
[2018-03-18] MEDS: traMADol 50 MG TAB PO PRN (03:27)
[2018-03-18 05:09] LABS: INR 1.49 (0.83-1.16); PROTIME(PATIENT) 18.2 SEC (12.0-15.0)
[2018-03-18] MEDS: HEPARIN 5,000 UNIT/0.5 ML INJ SC SCH ×2 (06:39→15:08)
--- NOTE | 2018-03-18 07:11 | SOAPPROG ---
SOAP Progress Note Assessment/Plan: Assessment: POD#4 Totally thoracoscopic Maze w bipolar RF and Clip exclusion of the FERMÍN, compl by liver injury requiring rt sided thoracotomy Longstanding persistent atrial fibrillation - with intermittent hematuria on Coumadin. Hybrid Maze uneventful on the left side. Right side compl by thoracoscopy port puncture of liver req mini thoracotomy to explore wound. Hemostasis achieved with topical hemostatic and pressure. Remainder of rt sided ablative lesions completed without incident. Chest tubes out. Pleuropericarditis prophylaxis with steroids. AF prophylaxis with amio and BB. Antithrombotic prophylaxis with Coumadin x 3 mo, as per existing INR parameters. Acute expected blood loss anemia - Exacerbated by liver injury. No transfusions required. JEFF/chronic nocturnal hypoxemia - Stable. Extubated without incident. No sig suppl O2 needs. Plan: Ok for discharge. Instructions re diet, meds, activity, f/u and wound care to be reviewed in presence of this afternoon. 03/18/18 07:11 Subjective: Much better. Comfortable going home. has appt at 2pm but will be available after 3pm for d/c instructions. Objective: Vital Signs Temp Pulse Resp BP Pulse Ox 36.7 C 71 17 162/94 H 93 03/18/18 03:21 03/18/18 03:21 03/18/18 03:21 03/18/18 03:21 03/18/18 03:21 Laboratory Results 03/16/18 05:25 03/18/18 03:34 03/17/18 03/18/18 03/19/18 05:59 05:59 05:59 Intake Total 2270 1063 Output Total 1400 2000 Balance 870 -937 PT 18.2 SEC (12.0-15.0) H 03/18/18 03:34 INR 1.49 (0.83-1.16) H 03/18/18 03:34 Holding SR. Improved BP control and decr suppl O2 needs with scheduled analgesia. Adequate fluid balance. Stable renal fx. Physical Exam - Physical Exam General Appearance: alert, no apparent distress Respiratory: lungs clear (grossly) Cardiac/Chest: regular rate, rhythm, other (Rt thoracot and port sites CDI) Abdomen: non-tender, soft Skin: warm/dry Extremities: other (no visible edema) ICD10 Worksheet Patient Problems: Problems Problem Status Onset Acute blood loss anemia Acute Liver laceration, minor Acute S/P Maze operation for atrial fibrillation Acute ~03/14/18 S/P thoracotomy Acute ~03/14/18 CAD, multiple vessel Chronic Chronic anticoagulation Chronic Longstanding persistent atrial fibrillation Chronic JEFF (obstructive sleep apnea) Chronic Renal calculus, right Chronic
[2018-03-18] MEDS ORDERED: FUROSEMIDE 20 MG TAB PO SCH (09:00)
[2018-03-18] MEDS: guaiFENesin 600 MG TAB.ER PO SCH (10:17)
[2018-03-18] MEDS: AMIODARONE HCL 200 MG TAB PO SCH (10:17)
[2018-03-18] MEDS: SELENIUM 0.2 MG TAB PO SCH (10:17)
[2018-03-18] MEDS: ASPIRIN 81 MG CHEWABLE TAB PO SCH (10:18)
[2018-03-18] MEDS: PANTOPRAZOLE SODIUM 40 MG TAB PO SCH (10:19)
[2018-03-18] MEDS: METOPROLOL SUCCINATE XR 50 MG TAB PO SCH (10:19)
[2018-03-18] MEDS: methylPREDNISolone 4 MG TAB PO SCH ×2 (10:23→13:21)
[2018-03-18 15:33] VITALS: BP 141/82
--- NOTE | 2018-03-18 15:50 | PDHOMEO2F ---
Home Oxygen Face to Face Home Orders: I certify that a physician or a nurse practitioner or physician's baking assistant has had a [id number] encounter with this patient on the date of this order due to the diagnosis listed, which relates to the primary reason the patient requires home oxygen. Alternative treatments have been tried, or considered, and deemed ineffective. It is anticipated that supplemental oxygen will result in improvement with treatment. Home oxygen qualifying diagnosis: JEFF SpO2 on room air (%): 83 Frequency of home oxygen needed: continuous Home oxygen liters per minute: 1.5 Home oxygen delivery device: nasal cannula Concentrator: Yes E-tanks for mobility and back up: Yes If ordering portable O2, is the patient mobile in the home?: Yes I certify that, based on these findings, the home oxygen is medically necessary for this patient for the following length of time. Length of time home oxygen needed: 99 years (unknown)
--- NOTE | 2018-03-18 15:54 | PDDCSUM ---
Discharge Summary Discharge Summary: DATE OF ADMISSION: 03/14/18 DATE OF DISCHARGE: 03/18/18 DISPOSITION: Home, self-care PRINCIPAL ADMISSION DIAGNOSIS: Longstanding persistent atrial fibrillation PRINCIPAL DISCHARGE DIAGNOSES: 1. Status post totally thoracoscopic Maze procedure 2. Status post right mini thoracotomy for exploration of iatrogenic liver injury 3. Acute expected blood loss anemia HISTORY OF PRESENT ILLNESS: 72 yo male with LPAF, a [id number] score of 3, and episodic hematuria on Coumadin, admitted for elective hybrid Maze procedure to mitigate need for long- term anticoagulation. PERTINENT PAST MEDICAL HISTORY: Rt renal staghorn calculus, mild chronic low leg edema, nonobstructive CAD with patent LAD and LCX/OM stents, cutaneous melanoma of eyelid and nose, JEFF, chronic nocturnal hypoxemia supplemented with 2 Lpm O2, remote gastric ulcer, obesity MEDICATIONS ON ADMISSION: ASA 325 mg daily, Coumadin 5 mg Sun, M, W, F alternating with 7.5 mg rest of week, Selenium 100 mcg daily, Fish oil 2,000 mg HS, Adalat CC 30 mg daily, Toprol XL 50 mg q am and 25 mg q pm, Lipitor 40 mg HS, Effexor XR 75 mg daily, Vit D2 50,000 units q 14 days, Herbal supplement daily ALLERGIES/SENSITIVITIES: NKDA CONSULTANTS: Pulmonology/critical care ([place]) PROCEDURES/IMAGIN/2 ([place]): Totally thoracoscopic Maze procedure with bipolar radiofrequency and AtriClip exclusion of the left atrial appendage. ABBREVIATED HOSPITAL COURSE BY ACTIVE PROBLEM LIST: 1. Longstanding persistent atrial fibrillation - with intermittent hematuria on Coumadin. Hybrid Maze uneventful on the left side. Right side compl by thoracoscopy port puncture of liver req mini thoracotomy to explore wound. Hemostasis achieved with topical hemostatic and pressure. Remainder of rt sided ablative lesions completed without incident. Extubated without incident. Chest tubes out POD#1. Pleuropericarditis prophylaxis with steroids. AF prophylaxis with home BB and CCB as well as adjunctive amio. Antithrombotic prophylaxis with Coumadin x 3 mo, as per existing INR parameters. 2. Acute expected blood loss anemia - Exacerbated by liver injury. No transfusions required. Serial H/H > 10/30 maintained. DISCHARGE CLINICAL INFORMATION: Rt thoracotomy and bilateral port sites CDI, sutured, +Dermabond. HR 60s-70s. SBP 150s. SpO2 83% RA, correcting to 92% with 1.5 lpm O2. Wt equal to admission at 105.7 kilos. Hgb 11, HCT 32.5, Plt 260 , Na 136, K 3.9, Cr 0.8 INR 1.49 DISCHARGE MEDICATIONS: As on admission with the following adjustments: Decrease aspirin to 81 mg daily. Hold for INR > 3. NEW prescriptions: 1. Amiodarone 200 mg BID x 5 days, then 200 mg daily x 2 weeks, then 100 mg daily x 1 week or out of tablets 2. Medrol dose agnes as per directions 3. Tramadol 50 mg one half tab to two tabs q 6h prn breakthrough incisional discomfort 4. Mucinex 600 mg BID up to 2 weeks 5. Lasix 20 mg daily 6. Oxygen continuously at 1.5 lpm during the day and 2 lpm before sleep FOLLOW UP APPOINTMENTS: 1. CV surgery: with Dr Graff at [facility] on 03/25 at 9:15am. 2. Cardiology: with Dr Mota at [facility] within 4-6 weeks. Appointment to be established during surgical visit. FOLLOW UP TESTIN. INR at [facility] anticoagulation clinic on 03/25 at 10:15 am. 2. CXR prior to surgical appointment.
--- NOTE | 2018-03-18 15:55 | ASDISCHSUM ---
Discharge Information Plan Status:Home with No Needs Medically Cleared to Leave:03/17/2018 Discharge Date:03/17/2018 CM D/C Disposition:Home, Routine, Self-Care ADT D/C Disposition:Home, Routine, Self-Care Projected Discharge Date:03/17/2018 Transportation at D/C:Family Discharge Delay Reason: Follow-Up Date:03/17/2018 Discharge Slot: Final Diagnosis: Placement Information Patient Contact Information Contact Name:VIPIN Relationship: Address:[address] City:[place] Alternate Phone: [facility]/Zip Code:[place] [address] Email: Financial Information Financial Class:Medicare Primary Plan Desc:MEDICARE INPATIENT Primary Plan Number:[id number] Secondary Plan Desc:[employer]/MDR SUPPLEMENT Secondary Plan Number:[id number] Assessment Information LACE LACE Length of stay for Answers: 4-6 days current admission Acuity / Level of Answers: Yes Care: Did the patient have an inpatient admission? Comorbidities - select Answers: Chronic pulmonary disease all that apply Coronary Artery Disease Mild liver or renal disease Other Notes: A- fib, JEFF, obesity, HLD, Hx of melanoma (s/p treatment), # of Emergency department Answers: 1-2 visits in the last 6 months Score: 15 Date Signed: 03/18/2018 03:53 PM Electronically Signed By:Jessi Crandall RN [facility] CM Progress Note CM Note CM Note Notes: Pt admitted status post thoracoscopic Maze procedure complicated by liver laceration requiring thoracotomy. PT/OT evals recommend DC Home Independent. Anticipate pt to continue to stabilize and DC home w/ to follow-up at cardiac rehab. CM to follow. Date Signed: 03/15/2018 06:21 PM Electronically Signed By:Nkechi John RN [facility] CM Progress Note CM Note CM Note Notes: Chart reviewed. Per [facility] patient likely to dc home tomorrow. No needs identified. CM available should needs arise. Plan: Dc to home. Date Signed: 03/16/2018 01:21 PM Electronically Signed By:Alma Rosa Mariano RN Case Management Discharge Plan Note Case Management Discharge Discharge Order Complete? Answers: Yes Patient to Obtain Answers: via Family Medications Transportation Arranged Answers: Family/Friends Discharge Comments Notes: 03/18/2018 Case Management Note Pt to discharge home with family support and follow up as directed. Date Signed: 03/18/2018 03:54 PM Electronically Signed By:Jessi Crandall RN Intervention Information
[2018-03-18] MEDS ORDERED: methylPREDNISolone 4 MG TAB PO SCH (21:00)
[2018-03-19] MEDS ORDERED: methylPREDNISolone 4 MG TAB PO SCH (07:30)
[2018-03-20] MEDS ORDERED: methylPREDNISolone 4 MG TAB PO SCH (07:30)
[2018-03-21] MEDS ORDERED: methylPREDNISolone 4 MG TAB PO SCH (07:30)
[2018-03-22] MEDS ORDERED: methylPREDNISolone 4 MG TAB PO SCH (07:30)
== END 2018-03-18 17:02 | disposition home or self-care (01) | DRG 229 ==
LOC: F3N 03-14 05:59 → F2N 03-14 12:30 → F2W 03-15 09:17
PROVIDERS: ADMIT Thoracic Surgery (Cardiothoracic Vascular Surgery); ATTEND Thoracic Surgery (Cardiothoracic Vascular Surgery)
PROC: 02584ZZ Destruction of Conduction Mechanism, Percutaneous Endoscopic Approach (ICD-10-PCS; principal; 2018-03-14 07:15)
PROC: 02L74CK Occlusion of Left Atrial Appendage with Extraluminal Device, Percutaneous Endoscopic Approach (ICD-10-PCS; principal; 2018-03-14 07:15)
DX: I48.1 Persistent atrial fibrillation (principal); K91.72 Accidental puncture and laceration of a digestive system organ or structure during other procedure; D62 Acute posthemorrhagic anemia; Z53.32 Thoracoscopic surgical procedure converted to open procedure; G47.33 Obstructive sleep apnea (adult) (pediatric); I25.10 Atherosclerotic heart disease of native coronary artery without angina pectoris; R31.9 Hematuria, unspecified; N20.0 Calculus of kidney; E66.9 Obesity, unspecified; Z68.36 Body mass index [BMI] 36.0-36.9, adult; E78.5 Hyperlipidemia, unspecified; Z87.891 Personal history of nicotine dependence
CPT/HCPCS: 97110-GP; 97116-GP; 97161-GP; 97165-GO; 97530-GO; 97535-GO; G8978-GP-CI; G8978-GP-CJ; G8979-GP-CI; G8980-GP-CI; G8987-GO-CJ; G8988-GO-CI; J0153; J0171; J0282; J0690; J1100; J1265; J1644; J1885; J1940; J2001; J2250; J2260; J2370; J2405; J2704; J2720; J2930; J3010; J3475; J7512; P9041

== ENCOUNTER → 2018-03-12 | Outpatient (CLI) | payer OTHER, MEDICARE ==
[~2018-03-12] MED LIST: LIDOCAINE 1% 2 ML INJ ONE
== END ==
LOC: FIMAGING 15:01
PROVIDERS: ATTEND Thoracic Surgery (Cardiothoracic Vascular Surgery)
DX: I50.9 Heart failure, unspecified (principal); J81.0 Acute pulmonary edema; I48.91 Unspecified atrial fibrillation; I70.0 Atherosclerosis of aorta

== ENCOUNTER → 2018-03-25 | Outpatient (CLI) | payer OTHER, MEDICARE | LOC: FIMAGING 08:31 | PROVIDERS: ATTEND Thoracic Surgery (Cardiothoracic Vascular Surgery) | DX: J90 Pleural effusion, not elsewhere classified (principal); R91.8 Other nonspecific abnormal finding of lung field; Z98.890 Other specified postprocedural states; Z86.79 Personal history of other diseases of the circulatory system ==

== ENCOUNTER → 2018-04-08 | Outpatient (CLI) | payer OTHER, MEDICARE | LOC: FIMAGING 09:35 | PROVIDERS: ATTEND Thoracic Surgery (Cardiothoracic Vascular Surgery) | DX: J90 Pleural effusion, not elsewhere classified (principal); R91.8 Other nonspecific abnormal finding of lung field ==

== ENCOUNTER → 2018-06-10 | Outpatient (CLI) | payer OTHER, MEDICARE ==
[~2018-06-10] MED LIST changes: +IOHEXOL 350mgI/ML (OMNIPAQUE) 150 ML BTL IV ONE; -LIDOCAINE 1% 2 ML INJ ONE
== END ==
LOC: FIMAGING 08:46
PROVIDERS: ATTEND Internal Medicine Cardiovascular Disease
DX: Z01.810 Encounter for preprocedural cardiovascular examination (principal); I48.91 Unspecified atrial fibrillation; I51.7 Cardiomegaly; Z85.820 Personal history of malignant melanoma of skin; Z98.890 Other specified postprocedural states
CPT/HCPCS: 75572; Q9967

== ENCOUNTER 2018-06-17 11:03 | Observation (INO) | payer OTHER, MEDICARE ==
[2018-06-17] MEDS ORDERED: NS 1,000 ML IV ONE (11:12)
[2018-06-17 12:00] LABS: PLATELET COUNT 314 10^3/uL (150-400)
[2018-06-17] MEDS ORDERED: HEPARIN/DEXTROSE 25,000 UNIT/500 ML BAG ONE (12:07)
[2018-06-17] MEDS ORDERED: HEPARIN 10,000 UNIT/10 ML MDV (1,000 UNIT/ML) ONE (12:07)
[2018-06-17] MEDS ORDERED: LIDOCAINE 1% 300 MG/30 ML SDV ONE (12:07)
[2018-06-17] MEDS ORDERED: IOPAMIDOL (ISOVUE-300) 100 ML BTL ONE (12:08)
[2018-06-17] MEDS ORDERED: BUPIVACAINE 0.75% 10 ML SDV ONE (12:08)
--- NOTE | 2018-06-17 12:09 | PDGENHP ---
History & Physical Chief Complaint: afib Relevant Physical Exam: s1s2 rrr cta ao3 Cardiorespiratory Assessment: afib sp epicardial maze and christal excision. for endocardial ablation procedure
[2018-06-17 12:10] LABS: INR 1.55 (0.83-1.16); PROTIME(PATIENT) 18.7 SEC (12.0-15.0)
[2018-06-17] MEDS ORDERED: MIDAZOLAM 2 MG/2 ML VIAL IVP ONE (12:30)
--- NOTE | 2018-06-17 12:32 | PDANEPAE ---
ANE History of Present Illness todd ep study ANE Past Medical History - Cardiovascular History Hx Hypertension: Yes Hx Arrhythmias: Yes Hx Chest Pain: No Hx Coronary Artery / Peripheral Vascular Disease: Yes Hx CHF / Valvular Disease: No Hx Palpitations: No Cardiovascular History Comment: Atrial Fibrillation - Pulmonary History Hx COPD: No Hx Asthma/Reactive Airway Disease: No Hx Recent Upper Respiratory Infection: No Hx Oxygen in Use at Home: Yes Hx Sleep Apnea: No Pulmonary History Comment: JEFF Triggers - Neurologic History Hx Cerebrovascular Accident: No Hx Seizures: No Hx Dementia: No - Endocrine History Hx Diabetes: No Hypothyroid: No Hyperthyroid: No Obesity: mild - Renal History Hx Renal Disorders: Yes Renal History Comment: Right Kidney Stone - Liver History Hx Hepatic Disorders: No Hepatic History Comment: Lesion on Liver - Neurological & Psychiatric Hx Hx Neurological and Psychiatric Disorders: Yes Neurological / Psychiatric History Comment: depression - Cancer History Hx Cancer: Yes Cancer History Comment: Malignant Melanoma - Congenital Disorder History Hx Congenital Disorders: No - GI History GERD: no Hx Gastrointestinal Disorders: No - Other Health History Other Health History: wears glasses. bilat. hearing aids. Bruise easily. beginning glaucoma - Chronic Pain History Chronic Pain: No (Occasional Kidney stone pain and Arthritic pain) - Surgical History Prior Surgeries: Left shoulder repair x 3. Stent placements x 2. Stomach resection. Left neck resection with lymph nodes resection with large melanoma removed from nose ANE Review of Systems Review of Systems: - Exercise capacity Exercise capacity: <4 METS ANE Patient History - Allergies Allergies/Adverse Reactions: No Known Allergies Allergy (Unverified 12/04/17 10:10) - Home Medications Home Medications: Atorvastatin Calcium [Lipitor 40 mg (*)] 40 mg PO HS 04/23/12 [Last Taken ] Metoprolol Succinate Xr [Toprol Xl 50 mg (*)] 50 mg PO DAILY 04/23/12 [Last Taken 03/13/18] NIFEdipine ER [Adalat CC 30 mg (*)] 30 mg PO DAILY 04/23/12 [Last Taken 03/13/18 ] [place]-3 Fatty Acids [Fish Oil 1000 mg (*)] 2,000 mg PO HS 04/23/12 [Last Taken 03/09/18] Warfarin Sodium [Coumadin 5MG (*)] 5 mg PO SUMOTUWETHFR@21 01/18/14 [Last Taken 03/09/18] Ergocalciferol [Vitamin D2 (*)] 50,000 unit PO Q14D 12/04/17 [Last Taken ] Herbals/Supplements -Info Only 1 ea PO DAILY 12/04/17 [Last Taken 03/13/18] Metoprolol Succinate Xr [Toprol Xl 25 mg (*)] 25 mg PO HS 12/04/17 [Last Taken 03/13/18] Venlafaxine Xr [Effexor Xr 75MG (*)] 75 mg PO DAILY 12/04/17 [Last Taken ] Warfarin Sodium [Coumadin 7.5MG (*)] 7.5 mg PO SA@21 12/04/17 [Last Taken ] Enalapril Maleate [Vasotec 5 MG (*)] 5 mg PO DAILY 02/07/18 [Last Taken 03/13/18 ] - NPO status NPO Status: no food or drink >8 hours - Smoking Hx Smoking Status: Former smoker - Family Anes Hx Family Hx Anesthesia Complications: unknow ANE Labs/Vital Signs - Labs Result Diagrams: 06/17/18 11:40 06/17/18 11:40 - Vital Signs Height: 170 cm Weight: 104.3 kg ANE Physical Exam - Airway Mallampati Score: Class 2 Mouth exam: normal dental/mouth exam, campos - Pulmonary Pulmonary: no respiratory distress - Cardiovascular Cardiovascular: regular rate and rhythym - ASA Status ASA Status: II ANE Anesthesia Plan Anesthesia Plan: general endotracheal anesthesia
[2018-06-17] MEDS ORDERED: SUCCINYLCHOLINE CHLORIDE 200 MG/10 ML SYR IVP ONE (12:34)
[2018-06-17] MEDS ORDERED: ROCURONIUM 100 MG/10 ML VIAL ONE (12:34)
[2018-06-17] MEDS ORDERED: DEXAMETHASONE 4 MG/ML VIAL ONE (12:35)
[2018-06-17] MEDS ORDERED: PROTAMINE SULFATE 50 MG/5 ML VIAL IVP ONE (15:46)
[2018-06-17] MEDS ORDERED: SUGAMMADEX SODIUM 200 MG/2 ML VIAL IVP ONE (15:48)
[2018-06-17] MEDS ORDERED: GLYCOPYRROLATE 0.2 MG/1 ML VIAL ONE (15:56)
[2018-06-17] MEDS ORDERED: fentaNYL 100 MCG/2 ML INJ IVP PRN (16:22)
[2018-06-17] MEDS ORDERED: LR 500 ML IV PRN (16:22)
[2018-06-17] MEDS ORDERED: ALBUTEROL 3 ML DEYVIAL IH PRN (16:22)
[2018-06-17] MEDS ORDERED: NALOXONE HCL 0.4 MG/ML INJ IVP PRN (16:22)
[2018-06-17] MEDS ORDERED: ONDANSETRON 4 MG/2 ML VIAL IVP PRN (16:22)
[2018-06-17] MEDS ORDERED: traMADol 50 MG TAB PO PRN (16:24)
[2018-06-17] MEDS ORDERED: IBUPROFEN 600 MG TAB PO PRN (16:24)
[2018-06-17] MEDS ORDERED: guaiFENesin 600 MG TAB.ER PO PRN (16:24)
[2018-06-17] MEDS ORDERED: ERGOCALCIFEROL 50,000 I.UNIT CAP PO SCH (16:30)
--- NOTE | 2018-06-17 16:56 | EPPROC ---
Electrophysiology Procedure Note: ELECTROPHYSIOLOGIC STUDY AND CATHETER MEDIATED ABLATION FOR PERSISTENT ATRIAL FIBRILLATION Procedures performed: 07697-64 EP evaluation with RA/RV/LA pace/record, with arrhythmia induction 44658-13 EP evaluation with RA/RV pace record, insert/reposition catheter, with arrhythmia induction 11472 Atrial fibrillation ablation Linear ablation 99529 3D mapping Intracardiac echocardiogram Transseptal puncture Fluoroscopy INDICATION: Persistent atrial fibrillation SP Epicardial maze and FERMÍN ligation PROCEDURE: The patient arrived in the Electrophysiology Laboratory in the fasting state. The right groin, left groin and right infraclavicular area were prepped and draped in the usual sterile fashion. Anesthesiologist administered general anesthesia Dr. Torsten Worthington . All catheters were placed percutaneously using the Seldinger technique and advanced into position under fluoroscopic guidance. One #7 Tanzanian deflectable octapolar electrode catheter was placed in the His-bundle position via the left femoral vein (2mm spacing, IVC electrode for unipolar recordings). One #8 [place] AcuNaV ultrasound catheter was placed in the left femoral vein and advanced into the right atrium. One #4 Tanz[place] sheath was inserted into the left femoral artery via percutaneous technique and used for continuous arterial blood pressure monitoring and intermittent ACT determination. Programmed stimulation was performed from the right atrium, left atrium (CS) and right ventricle. Intracardiac echo evaluation of the left atrium and pulmonary veins was performed. Baseline ACT was drawn and heparin bolus was administered and heparin drip was started prior to transseptal puncture. ACT was checked every 15 minutes and maintained in the range of 350-400 seconds. One SL1 sheaths (8.5 Fr ) was inserted into the right femoral vein and advanced into the right atrium. Transseptal puncture was performed under intracardiac ultrasound, fluoroscopic and hemodynamic guidance placing the sheath into the left atrium. Parshall RF needle (C0 curve) was used. The mean left atrial pressure was 20 mmHg. There was baseline moderate MR on pre procedure MABEL. High-resolution map of the left atrium and all 4 pulmonary veins was performed using a PentaRay catheter. This showed that all 4 pulmonary veins were isolated with the exception of the anterior ridge of the right superior pulmonary vein. There was as expected, and incomplete line from the left inferior pulmonary vein to the mitral isthmus. There was also a anterior mitral roof line which had a gap near the left superior pulmonary vein. The following ablations were done: 1. Completion of mitral isthmus line. Septal to lateral conduction time increased from 80 milliseconds to 140 milliseconds post ablation. 2. Posterior inferior line between LIPV and RIPV. Wide double potentials were seen along this line post ablation. 3. Anterior roof line was completed near the base of the left atrial appendage which was ligated and excised previously. Post completion of anterior roof line , the posterior left atrium was isolated and dissociated signals were seen. Following this the catheter was withdrawn into the right atrium. 20 pole catheter was placed across the cava tricuspid isthmus. Bidirectional conduction block was present from surgical ablation. An esophageal temperature probe (12 electrode, Circa) was placed by the anesthesiologist at the beginning of the procedure. Esophageal temperature was monitored continuously and RF ablation was interrupted if there was a temperature rise >0.5 C. There was no esophageal temperature rise during the procedure. ICE imaging was consistent with pre ablation imaging; moreover it showed no pericardial effusion or LA/FERMÍN thrombus at the end of the procedure. Post ablation the patient was in sinus rhythm at 54 beats per minute. There were no new ST or T-wave changes compared to baseline. The catheters were withdrawn. Protamine was given. The sheaths were removed and manual pressure was used for hemostasis after placing percutaneous pursestring suture. The patient was recovered from anesthesia. There were no complications. CONCLUSIONS: 1. Persistent atrial fibrillation. 2. Prior surgical epicardial ablation and left atrial appendage excision. 3. RF ablation as detailed above, completing mitral isthmus line, completing anterior roof line and placing a posterior line between LIPV and RIPV. 4. Cavotricuspid isthmus ablation done surgically, bidirectional block present. 5. No apparent complications. Patient Problems: Problems Problem Status Onset Obesity (BMI 30-39.9) Chronic JEFF (obstructive sleep apnea) Chronic CAD, multiple vessel Chronic Acute blood loss anemia Acute Liver laceration, minor Acute S/P thoracotomy Acute ~03/14/18 S/P Maze operation for atrial fibrillation Acute ~03/14/18 Renal calculus, right Chronic Chronic anticoagulation Chronic Longstanding persistent atrial fibrillation Chronic
[2018-06-17] MEDS ORDERED: METOPROLOL SUCCINATE XR 25 MG TAB PO SCH (21:00)
[2018-06-17] MEDS ORDERED: ATORVASTATIN CALCIUM 40 MG TAB PO SCH (21:00)
[2018-06-17] MEDS ORDERED: OMEGA-3 FATTY ACIDS 1,000 MG CAP PO SCH (21:00)
[2018-06-17] MEDS ORDERED: WARFARIN SODIUM 5 MG TAB PO SCH (22:00)
[2018-06-18] MEDS ORDERED: NIFEdipine ER 30 MG TAB PO SCH (05:45)
[2018-06-18] MEDS ORDERED: ENALAPRIL MALEATE 5 MG TAB PO SCH (05:45)
[2018-06-18 06:05] LABS: PLATELET COUNT 250 10^3/uL (150-400)
[2018-06-18 06:06] LABS: INR 1.37 (0.83-1.16)
[2018-06-18] MEDS ORDERED: ASPIRIN 81 MG CHEWABLE TAB PO SCH (09:00)
[2018-06-18] MEDS ORDERED: VENLAFAXINE XR 75 MG CAP PO SCH (09:00)
[2018-06-18] MEDS ORDERED: Herbals/Supplements -Info Only PO SCH (09:00)
[2018-06-18] MEDS ORDERED: ENOXAPARIN 100 MG/ML SYR SC SCH (09:15)
--- NOTE | 2018-06-18 09:31 | ECHO ---
[email or web address] [address] [address] Main: [phone] Fax: [email or web address] Echocardiogram Name: ALEXANDRIA WREN MR#: [id number] Study Date: 06/18/2018 Study Time: 07:35 AM Date of : 1945 Age: 72 year(s) Height: 167.6 cm (66 in.) Weight: 103.87 kg (229 lb.) BSA: 2.12 m2 Gender: Male Examination: Echo Indication: F/U Post EP Study Image Quality: Adequate Contrast: Requested by: Mary Alice Ritchie BP: 185 mmHg/84 mmHg Heart Rate: Rhythm: Indication: F/U Post EP Study Procedure Staff Software Asset Manager: Adilia Loyd RDCS Reading Physician: Geoff Mota MD Requesting Provider: Conclusions: Mild concentric LV hypertrophy. Normal global systolic LV function. EF is 60 %. Moderate mitral valve regurgitation is present. Mild tricuspid regurgitation is present. Right ventricular systolic pressure measures 49mmHg. R to L shunt across IAS noted on color doppler c.w. transseptal puncture Measurements: Chambers Valvular Assessment AV/MV Valvular Assessment TV/PV Normal Normal Normal Name Value Range Name Value Range Name Value Range Ao Kathleen (2D): 3.2 cm (1.4 cm-2.6 AV Vmax: 1.61 m/s (1 m/s-1.7 TR Vmax: 3.32 mm/s ( - ) cm) m/s) TR PGmax: 44 mmHg ( - ) IVSd (2D): 1.3 cm (0.6 cm-1.1 AV maxP mmHg ( - ) syst. PAP: 49 mmHg ( - ) cm) AV meanP mmHg ( - ) PV Vmax: 0.79 m/s (0.6 m/s-0.9 LVDd (2D): 4.8 cm (4.2 cm-5.9 ANDRZEJ (VTI): 2.8 cm ( - ) m/s) cm) MV E Vmax: 0.74 m/s ( - ) PV PGmax: 2 mmHg ( - ) LVDs (2D): 2.8 cm (2.1 cm-4 MV A Vmax: 0.35 m/s ( - ) cm) MV E/A: 2.11 ( - ) LVPWd (2D): 1.2 cm (0.6 cm-1 cm) MV PHT: 0.064 s ( - ) LVOTd 2.1 cm 2.1 cm mm MVA (PHT): 3.4 s ( - ) LVEF (BP): 60 % (>=55 %) RVDd(2D): 3.6 cm (1.9 cm-3.8 cmmm) Continued Measurements: Chambers Valvular Assessment AV/MV Valvular Assessment TV/PV Patient: ALEXANDRIA WREN Study Date: 06/18/2018 Page 1 of 2 07:35 AM Name Value Name Value Name Value LADs: 4.7 cm MV DecTime: 225 m/s CVP (est.): 5 mmHg LADs Lon.5 cm MV E' Septal: 0.06 m/s LA Area: 30.5 cm2 MV E/E' Septal: 11.70 LA Volume: 109 ml MV E/E' Lateral: 6.20 LA Volume Index: 51.4 ml/m2 MR ERO: 0.230 cm2 MR PISA radius: 7 mm MR Reg. Volume: 43 ml Additional Vessels Name Value Ao Ascendin.1 cm Inferior Vena Cava: 2.3 cm Findings: Left Ventricle: Normal size left ventricle. Mild concentric LV hypertrophy. Normal global systolic LV function. EF is 60 %. No regional wall motion abnormality. Unable to assess diastolic dysfunction. Right Ventricle: Normal size right ventricle. Normal RV function. Left Atrium: The left atrium is severely dilated. Mitral Valve: The mitral valve is normal in appearance and function. Moderate mitral valve regurgitation is present. No mitral stenosis is present. Aortic Valve: The aortic valve is tri-leaflet. Aortic sclerosis is present. Trivial to mild aortic valve regurgitation. No aortic valve stenosis is present. Tricuspid Valve: The tricuspid valve is normal in appearance and function. Mild tricuspid regurgitation is present. The pulmonary artery pressure is moderately increased. Right ventricular systolic pressure measures 49mmHg. Pulmonic Valve: The pulmonic valve is normal in appearance and function. Mild pulmonic valve regurgitation is noted. Aorta: The aorta is normal. Normal size aortic root measuring 3.2 cm. Normal size ascending aorta measuring 3.1 cm. IVC: The IVC is normal sized. Pericardium: No pericardial effusion. Exam Comments: Some apical imaging foreshortened due to limited windows. (No Signature Object) Patient: ALEXANDRIA WREN Study Date: 06/18/2018 Page 2 of 2 07:35 AM [id number]
--- NOTE | 2018-06-18 11:32 | ASMTCASEMG ---
Living Arrangements What is your living Answers: With Spouse arrangement? Who do you live with? Type Of Residence What kind of residence do Answers: House you live in? Discharge Plan Comments Coordination Status Comments Notes: Patient is a 72yo male who came to [facility] for a endocardial ablation, epicardial maze and christal excision. Patient is currently OBS status. No therapies ordered at this time.Patient will likely discharge with cardiac outpatient. D/C plan TBD. CM will follow. Date Signed: 06/18/2018 11:31 AM Electronically Signed By:Libia Chao LCSW
[2018-06-18 12:55] VITALS: BP 150/75
--- NOTE | 2018-06-18 17:35 | GDS ---
[f rep st] DISCHARGE SUMMARY SUPERVISING PLANT AND EQUIPMENT WORKER: Geoff Mota MD ADMISSION DIAGNOSIS: Persistent atrial fibrillation status post epicardial atrial fibrillation ablation. DISCHARGE DIAGNOSIS: Atrial fibrillation status post epicardial and catheter- mediated ablation for atrial fibrillation. PROCEDURES PERFORMED: During hospitalization: 1. Electrocardiogram. 2. Echocardiogram. 3. Electrophysiology study. 4. Catheter-mediated ablation for persistent atrial fibrillation. HOSPITAL COURSE: Patient presented June 17, 2018, for RF ablation following prior surgical epicardial ablation and left atrial appendage excision in the setting of persistent atrial fibrillation. He underwent successful RF ablation , completing the mitral isthmus line, the anterior roof line, and placing a posterior line between the LIPV and the RIPV. He had no intra-procedure complications and has done very well in the postprocedure period. He has been ambulating around his room this morning without issue and he is appropriate and stable for discharge home today. PHYSICAL EXAMINATION: GENERAL: He is alert and oriented x4. No apparent distress. VITAL SIGNS: Blood pressure 150/75, heart rate 67, SpO2 97% on room air. Respiratory rate 18, temp 36.5 degrees Celsius. RESPIRATORY: Lungs are clear to auscultation. No adventitious breath sounds. CARDIAC: Normal S1 and S2, no S3 or S4. Rhythm is regular. ABDOMEN: Normoactive bowel sounds times all 4 quadrants. Abdomen is soft. No masses or tenderness. SKIN: [place], warm , dry without cyanosis, clubbing, or peripheral edema. EXTREMITIES: Bilateral purse string sutures removed intact without evidence of hematoma, redness, oozing, swelling, or warmth. Pulses are 2+ bilaterally, no edema. LABORATORY STUDIES: Drawn today, WBCs 9.98. CBC otherwise stable compared to preprocedure. BMP stable compared to preprocedure. Troponin 0.634. Elevated WBCs and troponin are to be expected in the postprocedure setting. PROCEDURES: Electrophysiology study and atrial fibrillation ablation as mentioned above. Preliminary echocardiogram done this morning demonstrates normal left ventricular systolic function without any wall motion abnormalities or pericardial effusion. Electrocardiogram this morning demonstrates normal sinus rhythm without new ST-T wave or VA interval abnormalities. DISCHARGE DISPOSITION: Patient will be discharged home in stable condition. He is under activity restrictions as below. DISCHARGE MEDICATIONS: Please see discharge medication reconciliation sheet for full details. Please note, that because the patient's INR is 1.43, he is being bridged with Lovenox for 48 hours, at which time, he will present to our clinic for an anticoagulation visit. His enalapril has also been increased to 10 mg daily in the setting of persistent hypertension throughout his hospitalization. He has also been restarted on his Coumadin 6 hours postprocedure. DISCHARGE INSTRUCTIONS: Post atrial fibrillation ablation instructions reviewed with patient in detail. We discussed activity restrictions including lifting no more than 10 pounds, and avoidance of submerged bathing for 10 days. He will get up and walk around every 45 minutes for 45 days. He will avoid unpressurized air travel or scuba diving for the next 6 months and he will present to our clinic for an echocardiogram prior to engaging in either of these activities. We also reviewed bleeding precautions, medication compliance, monitoring for signs and symptoms of infection, monitoring for atrial esophageal fistula, and monitoring for sustained arrhythmias. At the time of discharge, he verbalizes understanding of all discharge instructions without questions or concerns. He has a followup visit scheduled in 3 weeks and we will recheck is INR this Saturday. He will contact the clinic with any new or concerning symptoms prior to his upcoming visit. Time spent on discharge greater than 30 minutes. /[id number]/MODL MTDD
[2018-06-19] MEDS ORDERED: ENALAPRIL MALEATE 10 MG TAB PO SCH (09:00)
[2018-06-19] MEDS ORDERED: ENALAPRIL MALEATE 5 MG TAB PO ONE (09:05)
[2018-06-21] MEDS ORDERED: WARFARIN SODIUM 7.5 MG TAB PO SCH (21:00)
--- NOTE | 2018-06-23 10:02 | CPEKG ---
Test Reason : OPEN Blood Pressure : / mmHG Vent. Rate : 061 BPM Atrial Rate : 061 BPM P-R Int : 195 ms QRS Dur : 094 ms QT Int : 443 ms P-R-T Axes : 056 -02 029 degrees QTc Int : 447 ms Sinus rhythm Anteroseptal infarct, old Repol abnrm suggests ischemia, diffuse leads Confirmed by Geoff Mota ([id number]) on 06/23/2018 10:02:00 AM Referred By: Geoff Mota Confirmed By:Geoff Mota
== END 2018-06-18 13:45 | disposition home or self-care (01) ==
LOC: FCATH 11:03 → INTOOBSV 16:15 → F2N 16:15
PROVIDERS: ADMIT Internal Medicine Cardiovascular Disease; ATTEND Internal Medicine Cardiovascular Disease
DX: I48.1 Persistent atrial fibrillation (principal); I10 Essential (primary) hypertension; F32.9 Major depressive disorder, single episode, unspecified; Z79.01 Long term (current) use of anticoagulants; Z87.442 Personal history of urinary calculi; Z95.5 Presence of coronary angioplasty implant and graft
CPT/HCPCS: 93306; 93312; 93613; 93656; 93662; C1731; C1732; C1759; C1893; J0330; J1100; J1644; J1650; J2250; J2720; Q9967